=== PATIENT | female | born 1965 | race Caucasian/White ===

== ENCOUNTER → 2016-04-23 | Outpatient (CLI) | payer BC ==
[~2016-04-23] MED LIST: CALC500T25 PO
== END | disposition home or self-care (01) ==
LOC: C.LAB1850 09:32
PROVIDERS: ATTEND Internal Medicine
DX: E03.9 Hypothyroidism, unspecified (principal)

== ENCOUNTER → 2017-01-04 | Outpatient (CLI) | payer BC ==
--- NOTE | 2017-01-05 07:54 | MAMMOGRAPHY REPORT ---
BILATERAL DIGITAL SCREENING MAMMOGRAM TOMOSYNTHESIS WITH CAD: 01/04/2017 CLINICAL HISTORY: Routine screening examination. TECHNIQUE: Breast tomosynthesis in addition to standard 2D mammography was performed. Current study was also evaluated with a Computer Aided Detection (CAD) system. COMPARISON: Comparison is made to exams dated: 12/05/2015 mammogram and 10/16/2014 mammogram - [facility]. BREAST COMPOSITION: The tissue of both breasts is extremely dense, which lowers the sensitivity of m ammography. FINDINGS: The parenchymal pattern is similar to prior mammograms. There are benign rim calcificatio ns in the posterior left breast. No developing mass, architectural distortion or cluster of suspicio us microcalcifications is seen in either breast. IMPRESSION: ACR BI-RADS CATEGORY 2: BENIGN There is no mammographic evidence of malignancy. A 1 year screening mammogram is recommended. The pa tient will receive written notification of the results. Approximately 10% of breast cancers are not detected with mammography. A negative mammographic report should not delay biopsy if a clinically suggestive mass is present. Sowmya Santana M.D. ay/:01/04/2017 16:03:10 Solution Advisor: Clemencia CARROLL(R)(M), [facility] letter sent: Normal 1/2 BI-RADS Code: ACR BI-RADS Category 2: Benign
== END | disposition home or self-care (01) ==
LOC: C.MAMM 11:46
PROVIDERS: ATTEND Internal Medicine
DX: Z12.31 Encounter for screening mammogram for malignant neoplasm of breast (principal)

== ENCOUNTER → 2017-03-10 | Outpatient (CLI) | payer BC ==
--- NOTE | 2017-03-10 09:34 | DIAGNOSTIC IMAGING REPORT ---
FUSION CT SINUSES W/O HISTORY: Chronic sinusitis. TECHNIQUE: Multiaxial CT images of the sinuses were performed and reformatted in the coronal plane without the use of intravenous contrast. Fusion CT protocol was also obtained COMPARISON STUDY: None. FINDINGS: The frontal sinuses, ethmoid air cells, sphenoid sinuses, and mastoid air cells are clear. Minimal mucosal thickening within the floors of the bilateral maxillary sinuses. No fluid levels within the paranasal sinuses. Mild right nasal septal deviation with a right-sided nasal spur. The lamina papyracea and orbital floors are intact. The bilateral ostiomeatal units are patent. The orbits and visualized brain parenchyma are unremarkable. IMPRESSION: 1. Minimal mucosal thickening within the bilateral maxillary sinuses. Otherwise, the paranasal sinuses and mastoid air cells are clear. 2. No fluid levels within the paranasal sinuses. 3. Mild right nasal septal deviation. Electronically signed by: Anshu Dominique M.D. 03/10/2017 9:32 AM Dictated Date/Time: 03/10/2017 9:18 AM
== END | disposition home or self-care (01) ==
LOC: C.CTS 08:45
DX: J32.9 Chronic sinusitis, unspecified (principal)

== ENCOUNTER → 2017-03-24 | Outpatient (CLI) | payer BC ==
--- NOTE | 2017-03-26 14:28 | POLYSOMNOGRAPH REPORT ---
CLINICAL DATA: A 52-year-old female with a BMI of 37.1, referred by Dr. Paz and myself for evaluation of loud snoring, fatigue, and possible sleep apnea. On the evening of 03/25/2017, a home sleep apnea test was performed using a [employer] type 3 monitor. RECORDING RESULTS: Total recording time was 10 hours. The patient monitoring time and estimated sleep time was 5.2 hours. RESPIRATORY DATA: There was no evidence of clinically significant sleep apnea seen. The CHUY was 1.4. There were 7 hypopneic episodes. The longest respiratory event was 22 seconds. OXIMETRY DATA: No significant hypoxemia was seen. Oxygen keshawn was 87%. Mean saturation was 92%. Time below 89% was 1 minute. HEART RATE DATA: Heart rates ranged from 58-72 beats per minute. SNORING DATA: Snoring was recorded throughout the night. ANTHROPOLOGY AND ARCHEOLOGY INSTRUCTOR'S COMMENTS: The patient only wore the equipment for just over 5 hours. Snoring was present throughout the test. IMPRESSION: No evidence of clinically significant sleep apnea/hypopnea or nocturnal hypoxemia. RECOMMENDATIONS: The patient should continue to practice good sleep hygiene. Weight loss may be of benefit. SHAAND
== END | disposition home or self-care (01) ==
LOC: C.NEUR 09:30
PROVIDERS: ATTEND Internal Medicine Pulmonary Disease
DX: G47.19 Other hypersomnia (principal); R53.83 Other fatigue; R06.83 Snoring